=== PATIENT | female | born 1970 | race Caucasian/White ===

== ENCOUNTER 2017-05-14 14:07 | Emergency (ER) | payer BC, MEDICAID ==
[~2017-05-14] VITALS: Ht 157.5 cm; Wt 75.0 kg
[2017-05-14] MEDS ORDERED: TETANUS, DIPHTHERIA, PERTUSSIS VAC/PF 0.5ML (>7YR OLD) IM ONE (17:00)
[2017-05-14] MEDS ORDERED: LIDOCAINE HCL 1% 20ML VIAL (Pyxis) INJ MC ONE (18:45)
[2017-05-14] MEDS ORDERED: ACETAMINOPHEN 325MG TABLET PO ONE (18:45)
[2017-05-14 21:09] VITALS: BP 110/76
== END 2017-05-14 21:13 | disposition home or self-care (01) ==
LOC: ER 16:55
DX: S61.216A Laceration without foreign body of right little finger without damage to nail, initial encounter (principal); Z98.51 Tubal ligation status; W25.XXXA Contact with sharp glass, initial encounter; Y93.89 Activity, other specified; Y92.010 Kitchen of single-family (private) house as the place of occurrence of the external cause
CPT/HCPCS: 12001; 73130; 81025; 90471; 90715; 99284; J3490; Z7610